=== PATIENT | male | born 1950 | race Two or more races ===

== ENCOUNTER 2017-09-10 15:06 | Emergency (ER) | payer OTHER, BC ==
[~2017-09-10] VITALS: Ht 180.3 cm; Wt 72.6 kg
[2017-09-10 15:20] VITALS: Ht 180.3 cm; Wt 72.6 kg
[2017-09-10 18:00] VITALS: BP 120/76
== END 2017-09-10 18:00 | disposition home or self-care (01) ==
LOC: ED 15:06
DX: S42.471A Displaced transcondylar fracture of right humerus, initial encounter for closed fracture (principal); E11.22 Type 2 diabetes mellitus with diabetic chronic kidney disease; I12.9 Hypertensive chronic kidney disease with stage 1 through stage 4 chronic kidney disease, or unspecified chronic kidney disease; N18.9 Chronic kidney disease, unspecified; E78.5 Hyperlipidemia, unspecified; Z86.2 Personal history of diseases of the blood and blood-forming organs and certain disorders involving the immune mechanism; W07.XXXA Fall from chair, initial encounter; Y93.89 Activity, other specified; Y92.89 Other specified places as the place of occurrence of the external cause; Y99.8 Other external cause status
CPT/HCPCS: Q0092

== ENCOUNTER 2018-01-31 02:48 | Inpatient (IN) | payer OTHER, BC ==
[~2018-01-31] VITALS: Ht 180.3 cm; Wt 83.9 kg
[2018-01-31 04:33] LABS: BASOPHIL % 0.7 % (0-2); PLATELET COUNT 264 x10^3mcL (130-400)
[2018-01-31 04:39] LABS: RED CELL DISTRIBUTION WIDTH 17.6 % (11.5-14.5)
[2018-01-31 04:57] LABS: CALCIUM 6.6 mg/dL (8.5-10.1); CARBON DIOXIDE 17.4 mmol/L (21-32); CREATININE SERUM 1.9 mg/dL (0.7-1.3); POTASSIUM SERUM 3.9 mmol/L (3.5-5.1)
[2018-01-31] MEDS ORDERED: PROTONIX20 MG (05:08)
[2018-01-31] MEDS ORDERED: COZAAR100 MG PO (05:09)
[2018-01-31] MEDS ORDERED: ATENOLOL50 MG PO (05:09)
[2018-01-31] MEDS ORDERED: LASIX20 MG (05:09)
[2018-01-31] MEDS ORDERED: ALLOPURINOL100 MG (05:09)
[2018-01-31 05:10] LABS: BILIRUBIN TOTAL 0.17 mg/dL (0.20-1.00)
[2018-01-31 05:11] LABS: TOTAL PROTEIN, SERUM 3.9 g/dL (6.4-8.2)
[2018-01-31 05:12] LABS: ALBUMIN 0.6 g/dL (3.4-5.0)
[2018-01-31 05:25] LABS: acanthocyte (spur cell) 2+; ovalocyte/elliptocyte 1+; rbc morphology (normal/abnorm) ABNORMAL (NORMAL); target cell (codocyte) 1+; tear drop cell (dacryocyte) 1+
[2018-01-31 05:59] LABS: IRON 45 ug/dL (65-170)
[2018-01-31 06:00] LABS: MAGNESIUM 1.4 mg/dL (1.8-2.4); PHOSPHOROUS 3.9 mg/dL (2.5-4.9)
[2018-01-31 06:02] LABS: CHOLESTEROL/HDL RATIO 2.8; RED BLOOD CELLS 1.88 M/mm3 (4.52-5.90); TOTAL IRON BINDING CAPACITY 39 ug/dL (250-450)
[2018-01-31 06:43] LABS: T3 TOTAL 0.91 ng/mL
[2018-01-31 07:02] LABS: FREE T4 1.13 ng/dL (0.76-1.46)
[2018-01-31 07:05] LABS: FREE THYROXINE INDEX 1.8 ug/dL (1.4-4.5); T4(THYROXINE) 4.2 ug/dL (4.7-13.3)
[2018-01-31 07:45] VITALS: BP 85/59
[2018-01-31 10:48] LABS: microscopic required? YES; urine erythrocyte 1+ (NEGATIVE)
[2018-01-31 11:10] VITALS: BP 104/71
[2018-01-31 11:42] LABS: AMPHETAMINE QUAL UR NONE DETECTED (See below)
[2018-01-31 15:25] VITALS: BP 122/78
[2018-01-31 19:50] VITALS: BP 145/82
[2018-01-31 21:50] VITALS: BP 154/82
[2018-02-01 05:51] VITALS: BP 126/77
[2018-02-01 08:52] LABS: CALCIUM 7.3 mg/dL (8.5-10.1); CARBON DIOXIDE 19.7 mmol/L (21-32); CREATININE SERUM 2.1 mg/dL (0.7-1.3); MAGNESIUM 1.9 mg/dL (1.8-2.4); PHOSPHOROUS 4.2 mg/dL (2.5-4.9); POTASSIUM SERUM 4.4 mmol/L (3.5-5.1)
[2018-02-01 09:05] LABS: BASOPHIL % 0.6 % (0-2); PLATELET COUNT 185 x10^3mcL (130-400)
[2018-02-01 09:06] LABS: RED CELL DISTRIBUTION WIDTH 17.4 % (11.5-14.5)
[2018-02-01 09:20] VITALS: BP 117/82
[2018-02-01 13:27] VITALS: BP 117/82
[2018-02-03 08:22] VITALS: Ht 180.3 cm; Wt 83.9 kg
== END 2018-02-01 15:36 | disposition home or self-care (01) | DRG 377 ==
LOC: ED 02:48 → IC 04:47 → DU 04:47 → IC 06:18 → DU 18:16
PROVIDERS: Emergency Medicine; Family Medicine; Internal Medicine
PROC: 30233N1 Transfusion of Nonautologous Red Blood Cells into Peripheral Vein, Percutaneous Approach (ICD-10-PCS; 2018-01-31)
PROC: 0DJ08ZZ Inspection of Upper Intestinal Tract, Via Natural or Artificial Opening Endoscopic (ICD-10-PCS; principal; 2018-01-31 09:00)
PROC: 0DBL8ZZ Excision of Transverse Colon, Via Natural or Artificial Opening Endoscopic (ICD-10-PCS; 2018-02-01)
PROC: 0DBN8ZZ Excision of Sigmoid Colon, Via Natural or Artificial Opening Endoscopic (ICD-10-PCS; 2018-02-01 08:00)
DX: K57.31 Diverticulosis of large intestine without perforation or abscess with bleeding (principal); N17.0 Acute kidney failure with tubular necrosis; G92 Toxic encephalopathy; D62 Acute posthemorrhagic anemia; D12.3 Benign neoplasm of transverse colon; K63.5 Polyp of colon; I12.9 Hypertensive chronic kidney disease with stage 1 through stage 4 chronic kidney disease, or unspecified chronic kidney disease; E11.22 Type 2 diabetes mellitus with diabetic chronic kidney disease; N18.9 Chronic kidney disease, unspecified; F10.20 Alcohol dependence, uncomplicated; M10.9 Gout, unspecified; Z98.1 Arthrodesis status; Z68.25 Body mass index [BMI] 25.0-25.9, adult; Y90.0 Blood alcohol level of less than 20 mg/100 ml
CPT/HCPCS: 43235; 45378; 82962; 83880; 84439; C9113; G0480; J0696; J1200; J1610; J1940; J2250; J2310; J2405; J3010; J3475; J3490; J7030; P9016; Q0092

== ENCOUNTER 2018-02-03 09:58 | Inpatient (IN) | payer OTHER, BC ==
[~2018-02-03] VITALS: Ht 180.3 cm; Wt 84.3 kg
[~2018-02-03 09:58] MED LIST: ALLOPURINOL100 MG; ATENOLOL50 MG PO; COZAAR100 MG PO; LASIX20 MG; PROTONIX20 MG
[2018-02-03 10:08] VITALS: Ht 180.3 cm; Wt 84.3 kg
[2018-02-03 11:03] LABS: CALCIUM 7.1 mg/dL (8.5-10.1); CARBON DIOXIDE 18.7 mmol/L (21-32); CREATININE SERUM 2.2 mg/dL (0.7-1.3); POTASSIUM SERUM 4.5 mmol/L (3.5-5.1)
[2018-02-03 11:09] LABS: BILIRUBIN TOTAL 0.17 mg/dL (0.20-1.00)
[2018-02-03 11:15] LABS: TOTAL PROTEIN, SERUM 4.7 g/dL (6.4-8.2)
[2018-02-03 11:27] LABS: BASOPHIL % 0.6 % (0-2); PLATELET COUNT 211 x10^3mcL (130-400)
[2018-02-03 12:50] LABS: MAGNESIUM 1.7 mg/dL (1.8-2.4); PHOSPHOROUS 3.6 mg/dL (2.5-4.9)
[2018-02-03 14:11] LABS: UA SPECIFIC GRAVITY 1.025 (1.005-1.035); microscopic required? YES; urine erythrocyte 2+ (NEGATIVE)
[2018-02-03 15:20] VITALS: BP 137/85
[2018-02-03 16:52] VITALS: BP 148/90
[2018-02-03 21:20] VITALS: BP 129/88
[2018-02-04 04:58] LABS: AMPHETAMINE QUAL UR NONE DETECTED (See below)
[2018-02-04 05:10] VITALS: BP 121/80
[2018-02-04 07:22] LABS: CALCIUM 7.2 mg/dL (8.5-10.1); CARBON DIOXIDE 19.6 mmol/L (21-32); CREATININE SERUM 1.9 mg/dL (0.7-1.3); MAGNESIUM 1.6 mg/dL (1.8-2.4); PHOSPHOROUS 3.3 mg/dL (2.5-4.9); POTASSIUM SERUM 4.2 mmol/L (3.5-5.1)
[2018-02-04 09:11] VITALS: BP 125/64
[2018-02-04 09:13] VITALS: BP 110/77
[2018-02-04 12:57] LABS: BASOPHIL % 0.8 % (0-2); PLATELET COUNT 177 x10^3mcL (130-400)
[2018-02-04 13:00] LABS: RED CELL DISTRIBUTION WIDTH 17.1 % (11.5-14.5)
[2018-02-04 13:11] VITALS: BP 122/84
[2018-02-04 16:51] VITALS: BP 134/83
[2018-02-04 22:39] VITALS: BP 126/66
[2018-02-05 05:14] VITALS: BP 130/97
[2018-02-05 06:49] LABS: BASOPHIL % 0.8 % (0-2); PLATELET COUNT 184 x10^3mcL (130-400)
[2018-02-05 07:21] LABS: BILIRUBIN DIRECT 0.09 mg/dL (0.0-0.2)
[2018-02-05 07:35] LABS: RED CELL DISTRIBUTION WIDTH 17.9 % (11.5-14.5)
[2018-02-05 08:21] LABS: BILIRUBIN TOTAL 0.2 mg/dL (0.20-1.00); CALCIUM 7.4 mg/dL (8.5-10.1); CARBON DIOXIDE 19.2 mmol/L (21-32); POTASSIUM SERUM 4.5 mmol/L (3.5-5.1)
[2018-02-05 08:22] LABS: ALBUMIN 0.8 g/dL (3.4-5.0); TOTAL PROTEIN, SERUM 4.1 g/dL (6.4-8.2)
[2018-02-05 08:45] VITALS: BP 130/81
[2018-02-05 13:40] VITALS: BP 136/87
[2018-02-05 17:00] VITALS: BP 140/85
[2018-02-05 17:02] LABS: APPEARANCE FLUID HAZY; COLOR FLUID COLORLESS; RBC FLUID 7 /cumm; SOURCE FLUID ASCITES; WBC FLUID 25 /cumm
[2018-02-05 17:57] LABS: LYMPHOCYTE FLUID 63 %; MONOCYTE FLUID 12 %
[2018-02-05 21:09] VITALS: BP 126/81
[2018-02-06 04:58] VITALS: BP 129/81
[2018-02-06 07:14] LABS: CALCIUM 7.3 mg/dL (8.5-10.1); CARBON DIOXIDE 21.5 mmol/L (21-32); CREATININE SERUM 1.7 mg/dL (0.7-1.3); POTASSIUM SERUM 4.1 mmol/L (3.5-5.1)
[2018-02-06 07:31] LABS: BASOPHIL % 0.6 % (0-2); PLATELET COUNT 179 x10^3mcL (130-400)
[2018-02-06 07:33] LABS: RED CELL DISTRIBUTION WIDTH 17.1 % (11.5-14.5)
[2018-02-06 10:17] VITALS: BP 145/92
[2018-02-06 20:41] VITALS: BP 134/84
[2018-02-07 05:37] VITALS: BP 118/82
[2018-02-07 07:46] LABS: CALCIUM 7.2 mg/dL (8.5-10.1); CARBON DIOXIDE 22.2 mmol/L (21-32); CREATININE SERUM 1.7 mg/dL (0.7-1.3); POTASSIUM SERUM 4.1 mmol/L (3.5-5.1)
[2018-02-07 08:11] VITALS: BP 124/83
[2018-02-07 08:14] LABS: BASOPHIL % 0.7 % (0-2); PLATELET COUNT 197 x10^3mcL (130-400)
[2018-02-07 08:51] LABS: RED CELL DISTRIBUTION WIDTH 17.6 % (11.5-14.5)
[2018-02-07 08:53] LABS: rbc morphology (normal/abnorm) ABNORMAL (NORMAL)
[2018-02-07 10:07] LABS: ovalocyte/elliptocyte 1+; schistocyte (helmet cell) 1+; target cell (codocyte) 1+
[2018-02-07 12:14] VITALS: BP 136/84
[2018-02-07 16:03] VITALS: BP 125/80
[2018-02-07 21:20] VITALS: BP 135/83
[2018-02-08 05:44] VITALS: BP 135/85
[2018-02-08 07:14] LABS: CALCIUM 7.3 mg/dL (8.5-10.1); CARBON DIOXIDE 21.3 mmol/L (21-32); CREATININE SERUM 1.7 mg/dL (0.7-1.3); MAGNESIUM 1.5 mg/dL (1.8-2.4); PHOSPHOROUS 2.7 mg/dL (2.5-4.9); POTASSIUM SERUM 4.2 mmol/L (3.5-5.1)
[2018-02-08 07:39] LABS: BASOPHIL % 0.7 % (0-2); PLATELET COUNT 198 x10^3mcL (130-400)
[2018-02-08 07:40] LABS: RED CELL DISTRIBUTION WIDTH 17.2 % (11.5-14.5)
[2018-02-08 07:55] VITALS: BP 123/82
[2018-02-08 11:10] VITALS: BP 80/63
[2018-02-08 16:00] VITALS: BP 119/82
[2018-02-08 19:00] VITALS: BP 131/74
[2018-02-08 23:00] VITALS: BP 120/79
[2018-02-09 02:47] LABS: PLATELET COUNT 151 x10^3mcL (130-400)
[2018-02-09 02:50] LABS: BASOPHIL % 2.4 % (0-2); RED CELL DISTRIBUTION WIDTH 14.9 % (11.5-14.5)
[2018-02-09 03:48] VITALS: BP 134/79
[2018-02-09 06:04] LABS: CALCIUM 7.1 mg/dL (8.5-10.1); CREATININE SERUM 1.6 mg/dL (0.7-1.3); MAGNESIUM 1.6 mg/dL (1.8-2.4); PHOSPHOROUS 2.6 mg/dL (2.5-4.9); POTASSIUM SERUM 4.1 mmol/L (3.5-5.1)
[2018-02-09 08:00] VITALS: BP 132/86
[2018-02-09 12:00] VITALS: BP 144/86
[2018-02-09 17:00] VITALS: BP 157/87
[2018-02-09 21:11] VITALS: BP 128/79
[2018-02-10 05:46] VITALS: BP 114/73
[2018-02-10 07:00] LABS: CARBON DIOXIDE 20.1 mmol/L (21-32); CREATININE SERUM 1.8 mg/dL (0.7-1.3); POTASSIUM SERUM 4.3 mmol/L (3.5-5.1)
[2018-02-10 07:06] LABS: BASOPHIL % 0.8 % (0-2); PLATELET COUNT 156 x10^3mcL (130-400)
[2018-02-10 09:06] VITALS: BP 138/92
[2018-02-10 12:22] VITALS: BP 139/92
[2018-02-10 16:58] VITALS: BP 128/86
[2018-02-10 21:44] VITALS: BP 111/77
[2018-02-11 05:26] VITALS: BP 130/81
[2018-02-11 06:15] LABS: CALCIUM 7.4 mg/dL (8.5-10.1); CARBON DIOXIDE 22.2 mmol/L (21-32); CREATININE SERUM 1.8 mg/dL (0.7-1.3); MAGNESIUM 1.8 mg/dL (1.8-2.4); PHOSPHOROUS 2.1 mg/dL (2.5-4.9); POTASSIUM SERUM 4.8 mmol/L (3.5-5.1)
[2018-02-11 09:19] LABS: BASOPHIL % 0.9 % (0-2); PLATELET COUNT 177 x10^3mcL (130-400)
[2018-02-11 09:22] VITALS: BP 134/82
[2018-02-11 09:22] LABS: RED CELL DISTRIBUTION WIDTH 16.7 % (11.5-14.5)
[2018-02-11 12:45] VITALS: BP 150/93
[2018-02-11] MEDS ORDERED: NOVAPLUS MEROP500 MG IV (15:04)
[2018-02-11 17:35] VITALS: BP 150/93
== END 2018-02-11 19:09 | DRG 377 ==
LOC: ED 09:58 → IC 12:20 → DU 12:20 → IC 02-08 11:08 → DU 02-09 16:54
PROVIDERS: Emergency Medicine; Family Medicine; General Practice; Internal Medicine; Internal Medicine Gastroenterology; Internal Medicine Nephrology
PROC: 05HM33Z Insertion of Infusion Device into Right Internal Jugular Vein, Percutaneous Approach (ICD-10-PCS; 2018-02-08)
PROC: B543ZZA Ultrasonography of Right Jugular Veins, Guidance (ICD-10-PCS; 2018-02-08)
PROC: 30233N1 Transfusion of Nonautologous Red Blood Cells into Peripheral Vein, Percutaneous Approach (ICD-10-PCS; principal; 2018-02-08 12:30)
PROC: 0W3P8ZZ Control Bleeding in Gastrointestinal Tract, Via Natural or Artificial Opening Endoscopic (ICD-10-PCS; 2018-02-08 12:30)
DX: K57.31 Diverticulosis of large intestine without perforation or abscess with bleeding (principal); E43 Unspecified severe protein-calorie malnutrition; N17.0 Acute kidney failure with tubular necrosis; I50.23 Acute on chronic systolic (congestive) heart failure; I13.0 Hypertensive heart and chronic kidney disease with heart failure and stage 1 through stage 4 chronic kidney disease, or unspecified chronic kidney disease; I50.42 Chronic combined systolic (congestive) and diastolic (congestive) heart failure; J98.11 Atelectasis; N39.0 Urinary tract infection, site not specified; K70.31 Alcoholic cirrhosis of liver with ascites; N18.9 Chronic kidney disease, unspecified; E11.22 Type 2 diabetes mellitus with diabetic chronic kidney disease; E11.65 Type 2 diabetes mellitus with hyperglycemia; S90.112A Contusion of left great toe without damage to nail, initial encounter; D50.0 Iron deficiency anemia secondary to blood loss (chronic); D63.8 Anemia in other chronic diseases classified elsewhere; I95.89 Other hypotension; K64.8 Other hemorrhoids; E83.42 Hypomagnesemia; M10.9 Gout, unspecified; R31.9 Hematuria, unspecified; R80.9 Proteinuria, unspecified; E78.5 Hyperlipidemia, unspecified; F10.20 Alcohol dependence, uncomplicated; Z68.25 Body mass index [BMI] 25.0-25.9, adult; Z98.1 Arthrodesis status; Z88.6 Allergy status to analgesic agent; Z90.49 Acquired absence of other specified parts of digestive tract; Z72.89 Other problems related to lifestyle; X58.XXXA Exposure to other specified factors, initial encounter; Y92.9 Unspecified place or not applicable
CPT/HCPCS: 36556; 45378; 49083; 82962; 83880; 84439; 94150; 97110-GP; 97116-GP; C1729; C9113; J0696; J1200; J1610; J1815; J1940; J2185 ×2; J2250; J2270; J2310; J2354; J2765; J3010; J3490; J7030; J7042; J7050; P9016; P9047; Q0092; Q0163